=== PATIENT | female | born 1990 | race Caucasian/White ===

== ENCOUNTER 2017-06-24 07:42 | Inpatient (IN) | payer OTHER ==
[2017-06-24] MEDS ORDERED: Sodium Chloride 0.9% 10 ML Syringe FLUSH PRN (09:24)
--- NOTE | 2017-06-24 10:02 | PCM.LDHP ---
L&D History of Present Illness - General Date of Service: 06/24/17 Admit Problem/Dx: Patient Status Order with Admit Dx/Problem 06/24/17 09:25 Patient Status [ADT] Routine Admission Diagnosis/Problem Admission Diagnosis/Problem 06/24/17 09:40 38-5/7 week intrauterine , active labor Source of Information: Patient History Limitations: Reports: No Limitations - History of Present Illness Introduction:: Love is a 27-year-old 1 para 0 white female is admitted in active labor on 06/24/2017. She reports contractions since last evening with significant enough contractions to keep her from resting well. On her last evaluation in clinic cervix was dilated to 1 cm, 80% effaced, posterior position, soft consistency and -3 station. It is now advanced to 5 cm, 90% effaced, anterior, - 1 station, very soft, cephalic presentation. Contractions are moderate in strength and are occurring every 2-7 minutes. For approximately 1 minute. Membranes are intact. Baby is active per patient history. 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 Last menstrual period was 09/29/2016 last for approximately 5-7 days. She has regular cycles with frequency of diffuse 27 days. Menarche age 14. Positive hCG on 10/29/2016. She is not on any control time conception. Patient's course started with her first visit on 12/23/2016 at 12 weeks and 1 day. She was seen on a very regular basis throughout the . Weight gain was from 209 pounds initially to a final weight of 229.4 pounds for a 20.4 pound weight gain. Her vital signs are stable. . Fundal Height growth was appropriate. Patient plans to breast-feed. She declined genetic testing. She has a history of depression but did well during the . She desires a natural delivery. Ultrasound done initially showed a somewhat eccentric. This did not seem to cause any Concerns and Growth Has Been Appropriate. She Had an Elevated 1 Hour Glucose Tolerance Test but a Normal Three-Hour Glucose Tolerance Test. Her Inverted Depression Screening on 03/06/2017 Was 11. She Is Doing Well with Depression Symptoms. Her Group B Strep Screen Was Negative. She Is Rubella Nonimmune and Therefore Is a Candidate for an MMR after Delivery. Laboratory Testing Blood B Positive. Antibody Screen Is Negative. Hepatitis Screen Is Negative. First Almost 12.1 G/DL. Platelets Were 359,000. Rubella Titer Showed Nonimmunity. Patient Is a Candidate for MMR after Delivery. RPR Was Nonreactive. Urine Culture Was Unremarkable. Hepatitis B Surface Antigen and HIV Assays Were Both Negative. Chlamydia and Gonorrhea Assays Were Both Negative. One-Hour GTT Was 132. Second Trimester Labs Showed Hemoglobin of 11.5 G or Deciliter and Platelet Count Which Was Normal at 329, 000. Her 3 hour glucose tolerance test showed a fasting blood sugar of 82, 1 hour 133, 2 hour 132, 3 hour 74. The strep screen is negative. Allergies: Pseudoephedrine which causes itching, rash and swelling Medications: 1. Ferrous sulfate 325 m oral tablets daily 2 tablets one daily Past medical history: 1. Eczema Past surgical history: 1. Tonsillectomy 2000 Family history: Mother alive with Lyme's disease. Dad with an AR 1 stent placed. One brother with Lyme's disease. One brother alive and well. 6 sisters some with depression and celiac disease. Maternal grandmother , cause unknown. Paternal grandfather , cause unknown. Paternal grandmother , cause unknown. Paternal grandfather secondary to an AR. Patient reports no bleeding, clotting, anesthesia or problems in the family. Social history: Patient is is Tito, she does not use any significant muscle alcohol, drugs or tobacco. [place] Review of systems: In general patient is doing well. She is experiencing contractions. Baby has been active. No complaints. Skin negative HEENT negative Lungs-no shortness of breath or infectious symptoms Cardiovascular no chest pain or exercise intolerance Breasts-changes associated with , patient plans to breast-feed GI-negative -increased fundal height and body habitus changes secondary to , increased frequency of urination Musculoskeletal-minimal swelling lower extremities Neurological-negative Physical exam: In general patient is well-developed, well-nourished, pleasant female who appears in moderate distress secondary to contractions. She reports good activity. Skin is warm and dry without lesions HEENT, neck and back within normal limits Lungs are clear with good breath sounds in all lung earl. Cardiovascular exam shows regular and rhythm without murmurs. Breast exam deferred Hemond on the first visit and found to be normal. Abdomen is protuberant with last fundal height clinic at 38 cm, baby in a vertex presentation Cervix is 5 cm, 90% effaced, -1 station, anterior, very soft, bag morataya intact , cephalic presentation Extremities are without significant edema Neurological exam within normal limits. Assessment: 1. 38-6/7 week intrauterine , active labor 2. Group B strep negative 3. Rubella nonimmune-candidate for MMR 4. Patient plans to breast-feed 5. Patient desires natural labor Plan: 1. Anticipate normal spontaneous vaginal delivery. Proceed with natural labor per patient desire 2. Support breast-feeding 3. MMR postdelivery 4. CBC - Related Data Allergies/Adverse Reactions: Allergies Allergy/AdvReac Type Severity Reaction Status Date / Time pseudoephedrine Allergy Itching Verified 06/24/17 09:23 H&P Review of Systems - Review of Systems: Review Of Systems: See Below L&D Exam - Exam Exam: See Below - Vital Signs Weight: 103.873 kg Problem List Initiated/Reviewed/Updated: Yes Orders Last 24hrs: Active Orders 24 hr Category Date Time Status Patient Status [ADT] Routine ADT 06/24/17 09:25 Active Activity as Tolerated [RC] PFP Care 06/24/17 09:25 Active Communication Order [RC] ASDIRECTED Care 06/24/17 09:25 Active Heart Tones [RC] ASDIRECTED Care 06/24/17 09:34 Active Notify Provider [RC] PFP Care 06/24/17 09:25 Active Notify Provider [RC] PRN Care 06/24/17 09:25 Active Peripheral IV Care [RC] . DIRECTED Care 06/24/17 09:34 Active Vital Signs [RC] PER UNIT ROUTINE Care 06/24/17 09:25 Active Regular Diet [DIET] Diet 06/24/17 Breakfast Active CBC WITH AUTO DIFF [HEME] Stat Lab 06/24/17 09:24 Ordered Lactated Ringers [Ringers, Lactated] 1,000 ml Med 06/24/17 09:30 Ordered IV ASDIRECTED Sodium Chloride 0.9% [Saline Flush] Med 06/24/17 09:24 Ordered 10 ml FLUSH ASDIRECTED PRN Electronic Heart Tones Ext w TOCO [WOMSER] Oth 06/24/17 09:25 Ordered Routine Electronic Heart Tones Internal [WOMSER] Per Unit Oth 06/24/17 09:25 Ordered Routine Peripheral IV Insertion Adult [OM.PC] Routine Oth 06/24/17 09:25 Ordered Resuscitation Status Routine Resus Stat 06/24/17 09:24 Ordered Medication Orders Lactated Ringer's (Ringers, Lactated) 1,000 mls @ 100 mls/hr IV ASDIRECTED LAWANDA Sodium Chloride (Saline Flush) 10 ml FLUSH ASDIRECTED PRN PRN Reason: Keep Vein Open
[2017-06-24] MEDS ORDERED: ePHEDrine 50 MG/ML SDV IVPUSH PRN (10:36)
[2017-06-24] MEDS ORDERED: diphenhydrAMINE 50 MG/ML SDV IVPUSH PRN (10:36)
[2017-06-24] MEDS ORDERED: fentaNYL 100 MCG/2 ML SDV EPIDUR PRN (10:36)
[2017-06-24] MEDS ORDERED: Bupivacaine/fentaNYL/NS 100 ML Bag EPIDUR SCH (10:45)
--- NOTE | 2017-06-24 13:09 | PCM.SN ---
- Free Text/Narrative Note: Love is a 27 y/o G1 now P1001 white female who was admitted on the AM of in active labor. She is 38 2/7 weeks with an CELIA of 07/06/17. Her cx changed from [facility] clinic last visit to 3-4 cm upon initial evaluation here in the hospital. She is monitored and over the course of the next hours she changed to 5 cm. There is bulging bag of morataya. Patient progressed steadily through labor. At 8 cm she had artificial rupture membranes with resultant lightly meconium-stained amniotic fluid. heart tones were reassuring throughout the entire labor pattern. At approximately 2000 hrs. patient was found to be completely dilated. She pushed and at 2021 hrs. delivered a viable, epstein, male in the left occiput anterior position, weight was 3100 g (6 lbs. 13 oz.), length was 20 inches and Apgars were 8 and 9. The umbilical cord was around neck 2-loose and was reduced over the baby's head. The baby's cord was clamped 2 and cut by the father of the baby. He was then taken to the warmer and evaluated by Dr. Dawkins , claim approver, because of the meconium-stained amniotic fluid. The placenta delivered intact in a Blair presentation. It had a marginal cord insertion it appeared intact and complete. It was discarded per patient desire. Estimated blood loss was 100 mL. There were no significant perineal lacerations or labial lacerations. Her were abrasions on the medial aspect of both labia minora at about the 10:00 and 2:00 positions. These were not bleeding was no anatomic distortion. Uterus is found to be firm and just below the umbilicus. Epidural was used for labor and analgesia. The placenta had a three-vessel cord. Condition: Good. Patient plans to breast-feed.
[2017-06-24] MEDS: Lactated Ringers 1,000 ML IV SCH ×2 (15:31→16:19)
[2017-06-24] MEDS ORDERED: Phenylephrine/Normal Saline 100 MCG/ML 10 ML Syringe IVPUSH PRN (16:42)
--- NOTE | 2017-06-24 16:42 | PCM.PREANE ---
Preanesthetic Assessment - Anesthesia/Transfusion/Family Hx Anesthesia History: Prior Anesthesia Without Reaction Family History of Anesthesia Reaction: No Transfusion History: No Prior Transfusion(s) - Review of Systems General: No Symptoms Pulmonary: No Symptoms Cardiovascular: No Symptoms Gastrointestinal: No Symptoms Neurological: No Symptoms Other: Reports: None - Physical Assessment Pulse: 105 O2 Sat by Pulse Oximetry: 99 Respiratory Rate: 19 Blood Pressure: 132/78 Temperature: 37.1 C Vital Signs: Last Vital Signs Temp 37.1 C 06/24/17 07:56 Pulse 105 H 06/24/17 07:56 Resp 19 06/24/17 07:56 BP 132/78 06/24/17 07:56 Pulse Ox 99 06/24/17 07:56 Height: 1.68 m Weight: 103.873 kg ASA Class: 2 Mental Status: Alert & Oriented x3 Airway Class: Mallampati = 1 Dentition: Reports: Normal Dentition Thyro-Mental Finger Breadths: 3 Mouth Opening Finger Breadths: 3 ROM/Head Extension: Full Lungs: Clear to Auscultation, Normal Respiratory Effort Cardiovascular: Regular Rate, Regular Rhythm, No Murmurs - Lab Values: Laboratory Last Values WBC 14.61 K/mm3 (3.98-10.04) H 06/24/17 09:30 RBC 4.74 M/mm3 (3.98-5.22) 06/24/17 09:30 Hgb 12.3 gm/L (11.2-15.7) 06/24/17 09:30 Hct 36.8 % (34.1-44.9) 06/24/17 09:30 MCV 77.6 fl (79.4-94.8) L 06/24/17 09:30 MCH 25.9 pg (25.6-32.2) 06/24/17 09:30 MCHC 33.4 g/dl (32.2-35.5) 06/24/17 09:30 RDW Std Deviation 39.5 fL (36.4-46.3) 06/24/17 09:30 Plt Count 261 K/mm3 (182-369) 06/24/17 09:30 MPV 10.7 fl (9.4-12.3) 06/24/17 09:30 Neut % (Auto) 83.7 % (34.0-71.1) H 06/24/17 09:30 Lymph % (Auto) 11.2 % (19.3-51.7) L 06/24/17 09:30 Spink % (Auto) 4.2 % (4.7-12.5) L 06/24/17 09:30 Eos % (Auto) 0.4 (0.7-5.8) L 06/24/17 09:30 Baso % (Auto) 0.1 % (0.1-1.2) 06/24/17 09:30 Neut # (Auto) 12.23 K/mm3 (1.56-6.13) H 06/24/17 09:30 Lymph # (Auto) 1.63 K/mm3 (1.18-3.74) 06/24/17 09:30 Spink # (Auto) 0.61 K/mm3 (0.24-0.36) H 06/24/17 09:30 Eos # (Auto) 0.06 K/mm3 (0.04-0.36) 06/24/17 09:30 Baso # (Auto) 0.02 K/mm3 (0.01-0.08) 06/24/17 09:30 - Allergies Allergies/Adverse Reactions: Allergies Allergy/AdvReac Type Severity Reaction Status Date / Time pseudoephedrine Allergy Itching Verified 06/24/17 09:23 - Anesthesia Plan Pre-Op Medication Ordered: None - Acknowledgements Anesthesia Type Planned: Epidural Pt an Appropriate Candidate for the Planned Anesthesia: Yes Alternatives and Risks of Anesthesia Discussed w Pt/Guardian: Yes Pt/Guardian Understands and Agrees with Anesthesia Plan: Yes PreAnesthesia Questionnaire Gastrointestinal History: Reports: GERD Psychiatric History: Reports: Depression - Past Surgical History HEENT Surgical History: Reports: Tonsillectomy - SUBSTANCE USE Smoking Status *Q: Never Smoker Second Hand Smoke Exposure: No Recreational Drug Use History: No - CURRENT (IN HOUSE) MEDS Current Meds: Current Medications Diphenhydramine HCl (Benadryl) 25 mg IVPUSH Q6H PRN PRN Reason: Itching Ephedrine Sulfate (Ephedrine Sulfate) 5 mg IVPUSH ASDIRECTED PRN PRN Reason: HYPOTENTSION Fentanyl (Sublimaze) 100 mcg EPIDUR Q3H PRN PRN Reason: PAIN Last Admin: 04/24/18 16:26 Dose: 100 mcg Fentanyl/Bupivacaine HCl (Fentanyl/Bupivacaine/Ns 2 Mcg-0.125% 100 Ml) 100 ml EPIDUR ASDIRECTED LAWANDA Last Admin: 06/24/17 16:26 Dose: 100 ml Lactated Ringer's (Ringers, Lactated) 1,000 mls @ 100 mls/hr IV ASDIRECTED LAWANDA Last Admin: 06/24/17 16:19 Dose: 100 mls/hr Sodium Chloride (Saline Flush) 10 ml FLUSH ASDIRECTED PRN PRN Reason: Keep Vein Open
[2017-06-24] MEDS ORDERED: Calcium Carbonate 500 MG Tab.Chew PO PRN (17:19)
[2017-06-24] MEDS ORDERED: Bupivacaine 0.25% 10 ML SDV ONE (18:00)
[2017-06-24] MEDS ORDERED: Acetaminophen 325 MG Tab PO PRN (21:00)
[2017-06-24] MEDS ORDERED: Docusate Sodium 100 MG Cap PO PRN (21:00)
[2017-06-24] MEDS ORDERED: Witch Hazel Medicated Pads 100/Jar TOP PRN (21:00)
[2017-06-24] MEDS ORDERED: Benzocaine/Menthol 20%-0.5% Spray 56 GM Canister TOP PRN (21:00)
[2017-06-24] MEDS ORDERED: Lanolin 100% Cream 7 GM Tube TOP PRN (21:00)
[2017-06-25] MEDS: Ibuprofen 600 MG Tab PO PRN ×3 (07:34→17:55)
--- NOTE | 2017-06-25 09:06 | PCM.SN ---
- Free Text/Narrative Note: note: Patient is doing well in the period. Minimal lochia, voiding well, ambulated without problems. Nursing without concerns. Patient is afebrile, vital signs are stable Abdomen is flat, soft, uterus is below the umbilicus and is firm and nontender. Legs are nontender. Assessment: recovery going well. Plan: Routine care. Patient be discharged home within the next 24- 48 hours.
--- NOTE | 2017-06-25 10:32 | PCM48HPAN ---
Post Anesthesia Note - EVALUATION WITHIN 48HRS OF ANESTHETIC Vital Signs in Normal Range: Yes Patient Participated in Evaluation: Yes Respiratory Function Stable: Yes Airway Patent: Yes Cardiovascular Function Stable: Yes Hydration Status Stable: Yes Pain Control Satisfactory: Yes Nausea and Vomiting Control Satisfactory: Yes Mental Status Recovered: Yes Pulse Rate: 105 Resp Rate: 19 Temperature: 37.0 C Blood Pressure: 132/78 - COMMENTS/OBSERVATIONS Free Text/Narrative:: Patient denied any anesthesia complications
[2017-06-26] MEDS: Ibuprofen 600 MG Tab PO PRN ×2 (01:31→09:05)
--- NOTE | 2017-06-26 05:37 | PCM.DCSUM1 ---
Discharge Summary - Hospital Course Free Text/Narrative:: erika is a 27 y/o G1 now P1001 white female who was admitted on the AM of in active labor. She is 38 2/7 weeks with an CELIA of 07/06/17. Her cx changed from [facility] last visit to 3-4 cm upon initial evaluation here in the hospital. She is monitored and over the course of the next hours she changed to 5 cm. There is bulging bag of morataya. Patient progressed steadily through labor. At 8 cm she had artificial rupture membranes with resultant lightly meconium-stained amniotic fluid. heart tones were reassuring throughout the entire labor pattern. At approximately 2000 hrs. patient was found to be completely dilated. She pushed and at 2021 hrs. delivered a viable, epstein, male infant in the left occiput anterior position, weight was 3100 g (6 lbs. 13 oz.), length was 20 inches and Apgars were 8 and 9. The umbilical cord was around neck 2-loose and was reduced over the baby's head. The baby's cord was clamped 2 and cut by the father of the baby. He was then taken to the warmer and evaluated by Dr. Dawkins , roofer gypsum, because of the meconium-stained amniotic fluid. The placenta delivered intact in a Blair presentation. It had a marginal cord insertion it appeared intact and complete. It was discarded per patient desire. Estimated blood loss was 100 mL. There were no significant perineal lacerations or labial lacerations. Her were abrasions on the medial aspect of both labia minora at about the 10:00 and 2:00 positions. These were not bleeding was no anatomic distortion. Uterus is found to be firm and just below the umbilicus. Epidural was used for labor and analgesia. The placenta had a three-vessel cord. Patient plans to breast-feed. patient is doing well. She is afebrile, vital signs stable and is having no complaints. She is nursing well, has minimal lochia and is voiding without concerns. Follow-up hemoglobin is decreased but manageable at this point. Patient will continue on her iron. She is interested in going home today. - Discharge Data Discharge Date: 06/26/17 Discharge Disposition: Home, Self-Care 01 Condition: Good - Patient Instructions Diet: Regular Diet as Tolerated (Nursing diet with increased calories and calcium as directed) Activity: As Tolerated (No intercourse or tampons until bleeding resolves) Driving: May Drive Today Showering/Bathing: May Shower Showering/Bathing, Other: May take a bath Notify Provider of: Fever, Increased Pain, Swelling and Redness, Nausea and/or Vomiting - Discharge Plan Prescriptions/Med Rec: PNV95/Ferrous Fumarate/FA [Prenavite Tablet] 1 each PO DAILY #100 tablet Home Medications: Home Meds Acetaminophen [Tylenol] 650 mg PO Q4H PRN tablet 06/26/17 [Rx] Ibuprofen [IJD: Ibuprofen] 600 mg PO Q4H PRN tablet 06/26/17 [Rx] PNV95/Ferrous Fumarate/FA [Prenavite Tablet] 1 each PO DAILY #100 tablet [Rx] Referrals: Onel Amador MD [Primary Care Provider] - - Discharge Summary/Plan Comment DC Time >30 min.: No Discharge Summary/Plan Comment: Discharge instructions: 1. Discharge home 2. Diet, activity and follow-up discussed with patient. Recommend nursing diet with increased calories and calcium. 3. Precautions given concern increased pain, bleeding, temperature, signs/ symptoms of DVT/PE. 4. Medications per home medication was printed, discussed with and given to the patient. 5. Return to clinic-Dr. Amador[facility] in 2 weeks. Diagnosis: Term -delivered Condition: Good - Patient Data Vitals - Most Recent: Last Vital Signs Temp 36.9 C 06/26/17 01:34 Pulse 65 06/26/17 01:34 Resp 16 06/26/17 01:34 BP 113/72 06/26/17 01:34 Pulse Ox 98 06/26/17 01:34 Weight - Most Recent: 103.873 kg I&O - Last 24 hours: Intake & Output 06/25/17 06/25/17 06/26/17 14:59 22:59 06:59 Intake Total 120 Balance 120 Lab Results - Last 24 hrs: Laboratory Results - last 24 hr 06/25/17 Range/Units 06:20 WBC 15.69 H (3.98-10.04) K/mm3 RBC 4.28 (3.98-5.22) M/mm3 Hgb 11.0 L (11.2-15.7) gm/L Hct 33.7 L (34.1-44.9) % MCV 78.7 L (79.4-94.8) fl MCH 25.7 (25.6-32.2) pg MCHC 32.6 (32.2-35.5) g/dl RDW Std Deviation 39.5 (36.4-46.3) fL Plt Count 247 (182-369) K/mm3 MPV 10.2 (9.4-12.3) fl Med Orders - Current: Current Medications Acetaminophen (Tylenol) 650 mg PO Q4H PRN PRN Reason: mild pain or fever Benzocaine/Menthol (Dermoplast Pain Relief [place]) 0 gm TOP ASDIRECTED PRN PRN Reason: Perineal Comfort Measure Docusate Sodium (Colace) 100 mg PO BID PRN PRN Reason: Constipation Emollient Ointment (Lansinoh Hpa) 0 gm TOP ASDIRECTED PRN PRN Reason: Sore Nipples Last Admin: 06/25/17 13:15 Dose: 1 applic Ibuprofen (Motrin) 600 mg PO Q4H PRN PRN Reason: Mild pain or fever Last Admin: 06/26/17 01:31 Dose: 600 mg Witch Liz (Tucks) 1 pad TOP ASDIRECTED PRN PRN Reason: Hemorrhoid pain Discontinued Medications Calcium Carbonate/Glycine (Tums) 500 mg PO Q2HR PRN PRN Reason: Indigestion Last Admin: 06/24/17 17:47 Dose: 500 mg Diphenhydramine HCl (Benadryl) 25 mg IVPUSH Q6H PRN PRN Reason: Itching Ephedrine Sulfate (Ephedrine Sulfate) 5 mg IVPUSH ASDIRECTED PRN PRN Reason: HYPOTENTSION Fentanyl (Sublimaze) 100 mcg EPIDUR Q3H PRN PRN Reason: PAIN Last Admin: 06/24/17 16:26 Dose: 100 mcg Fentanyl/Bupivacaine HCl (Fentanyl/Bupivacaine/Ns 2 Mcg-0.125% 100 Ml) 100 ml EPIDUR ASDIRECTED [facility] Last Admin: 06/24/17 16:26 Dose: 100 ml Lactated Ringer's (Ringers, Lactated) 1,000 mls @ 100 mls/hr IV ASDIRECTED [facility] Last Admin: 04/24/18 16:19 Dose: 100 mls/hr Oxytocin 20 unit/ Lactated (Ringer's) 1,002 mls @ 1,503 mls/hr IV TITRATE LAWANDA; Protocol Phenylephrine HCl (Phenylephrine In Ns 100 Mcg/Ml) 100 mg IVPUSH ONETIME PRN PRN Reason: Hypotension Sodium Chloride (Saline Flush) 10 ml FLUSH ASDIRECTED PRN PRN Reason: Keep Vein Open
== END 2017-06-26 10:52 | disposition home or self-care (01) | DRG 775 ==
LOC: JD.OBCHECK 07:42 → JD.OB 07:43 → JD.OBCHECK 09:24 → JD.OB 09:25 → OBSVTOIN 20:22 → JD.OB 20:51
PROVIDERS: ADMIT Obstetrics & Gynecology; ATTEND Obstetrics & Gynecology
PROC: 10E0XZZ Delivery of Products of Conception, External Approach (ICD-10-PCS; principal; 2017-06-24)
PROC: 10907ZC Drainage of Amniotic Fluid, Therapeutic from Products of Conception, Via Natural or Artificial Opening (ICD-10-PCS; 2017-06-24)
PROC: 00HU33Z Insertion of Infusion Device into Spinal Canal, Percutaneous Approach (ICD-10-PCS; 2017-06-24)
PROC: 3E0R3BZ Introduction of Anesthetic Agent into Spinal Canal, Percutaneous Approach (ICD-10-PCS; 2017-06-24)
DX: O77.0 Labor and delivery complicated by meconium in amniotic fluid (principal); O69.81X0 Labor and delivery complicated by cord around neck, without compression, not applicable or unspecified; O69.89X0 Labor and delivery complicated by other cord complications, not applicable or unspecified; Z3A.38 38 weeks gestation of pregnancy; Z37.0 Single live birth; Z28.3 Underimmunization status
CPT/HCPCS: 36415; 51702; 59025; 59409; 85025; 85027; A9270-GY; J3010; J7120

== ENCOUNTER 2021-04-01 13:22 | Inpatient (IN) | payer OTHER ==
[2021-04-01] MEDS ORDERED: Lidocaine 1% 50 ML MDV INJECT ONE (14:38)
[2021-04-01] MEDS ORDERED: Nalbuphine 10 MG/1 ML Vial IVPUSH PRN (14:38)
[2021-04-01] MEDS ORDERED: Lactated Ringers 1,000 ML IV SCH (14:45)
[2021-04-01] MEDS ORDERED: Oxytocin/Lactated Ringers 10 UNIT/1,000 ML BAG IV SCH (14:45)
[2021-04-01] MEDS ORDERED: Ampicillin 2 GM in Sodium Chloride 0.9% 100 ML IV ONE (15:00)
[2021-04-01] MEDS ORDERED: Ampicillin 1 GM in Sodium Chloride 0.9% 100 ML IV SCH (19:00)
[2021-04-01] MEDS ORDERED: Sodium Chloride 0.9% 10 ML Syringe FLUSH SCH (21:00)
[2021-04-01] MEDS ORDERED: Witch Hazel Medicated Pads 40/Jar TOP PRN (21:23)
[2021-04-01] MEDS ORDERED: Benzocaine/Menthol 20%-0.5% Spray 78 GM Cannister TOP PRN (21:23)
[2021-04-01] MEDS: Ibuprofen 600 MG Tab PO PRN (22:00)
[2021-04-02] MEDS: Ibuprofen 600 MG Tab PO PRN ×2 (04:19→20:14)
== END 2021-04-03 13:45 | disposition home or self-care (01) | DRG 807 ==
LOC: JD.OBCHECK 13:22 → JD.OB 13:23 → JD.OBCHECK 16:16 → OBSVTOIN 20:41 → JD.OB 20:42
PROVIDERS: ADMIT Obstetrics & Gynecology; ATTEND Obstetrics & Gynecology
PROC: 10E0XZZ Delivery of Products of Conception, External Approach (ICD-10-PCS; principal; 2021-04-01)
DX: O99.824 Streptococcus B carrier state complicating childbirth (principal); Z37.0 Single live birth; O99.62 Diseases of the digestive system complicating childbirth; K21.9 Gastro-esophageal reflux disease without esophagitis; Z20.822 Contact with and (suspected) exposure to COVID-19; Z3A.39 39 weeks gestation of pregnancy; Z86.16 Personal history of COVID-19
CPT/HCPCS: 36415; 59025; 59409; 85027; 86592; 86803; A9270-GY; J0290; J2590; J7120; U0002

== ENCOUNTER 2023-04-07 10:33 | Emergency (ER) | payer BC, OTHER ==
[2023-04-07 11:57] LABS: CORONAVIRUS COVID-19 NAA NEGATIVE (NEGATIVE); INFLUENZA A NAA NEGATIVE (NEGATIVE); RESPIRATORY SYNCYTIAL VIR NAA NEGATIVE (NEGATIVE)
[2023-04-07 13:37] LABS: BASOPHILS ABSOLUTE AUTO 0.1 K/mm3 (0.0-0.2); BASOPHILS PERCENT AUTO 0.6 % (0.0-1.0); EOSINOPHILS ABSOLUTE AUTO 0.2 K/mm3 (0.0-0.4); HEMOGLOBIN 13.2 gm/dl (12.0-16.0); IMMATURE GRAN ABSOLUTE AUTO 0.08 K/mm3 (0.00-0.05); IMMATURE GRAN PERCENT AUTO 0.5 % (0.0-0.4); LYMPHOCYTES ABSOLUTE AUTO 2.9 K/mm3 (1.0-4.8); LYMPHOCYTES PERCENT AUTO 19.1 % (24.0-44.0); MEAN CORPUSCULAR HEMOGLOBIN 25.7 pg (28.0-32.0); MEAN CORPUSCULAR HGB CONC 32.2 g/dl (32.0-36.0); MEAN CORPUSCULAR VOLUME 79.8 fl (83.0-99.0); MEAN PLATELET VOLUME 9.5 fl (9.4-12.3); MONOCYTES ABSOLUTE AUTO 0.9 K/mm3 (0.0-0.8); MONOCYTES PERCENT AUTO 5.6 % (0.0-8.0); NEUTROPHILS ABSOLUTE AUTO 11.3 K/mm3 (1.8-7.7); NEUTROPHILS PERCENT AUTO 73.2 % (41.0-71.0); PLATELET COUNT,PLT 429 K/mm3 (150-400); RED BLOOD CELL COUNT 5.14 M/mm3 (4.10-5.30); WHITE BLOOD CELL COUNT,WBC 15.43 K/mm3 (3.9-11.3)
[2023-04-07] MEDS: Sodium Chloride 0.9% 10 ML Syringe FLUSH PRN (13:46)
[2023-04-07] MEDS: Sodium Chloride 0.9% 1,000 ML IV SCH (13:46)
[2023-04-07 14:09] LABS: A/G RATIO 1.3 (1-2); ALANINE AMINOTRANSFERASE,ALT 27 U/L (14-59); ALBUMIN 4.1 g/dl (3.4-5.0); ALKALINE PHOSPHATASE 64 U/L (46-116); ASPARTATE AMNIOTRANSFERASE,AST 13 U/L (15-37); BILIRUBIN TOTAL 0.5 mg/dL (0.2-1.0); BLOOD UREA NITROGEN,BUN 6 mg/dL (7-18); C-REACTIVE PROTEIN 0.5 mg/dL (<1.0); CALCIUM 8.8 mg/dL (8.5-10.1); CARBON DIOXIDE,CO2 28 mEq/L (21-32); CHLORIDE,CL 103 mEq/L (98-107); CREATININE 0.6 mg/dL (0.55-1.02); ESTIMATED GFR 123 mL/min (>60); GLUCOSE RANDOM 93 mg/dL (70-99); PROTEIN TOTAL,TP 7.2 g/dl (6.4-8.2); SODIUM,NA 140 mEq/L (136-145); TROPONIN I HIGH SENSITIVITY 5 pg/mL (<=51); TSH 1.524 uIU/mL (0.358-3.74)
[2023-04-07] MEDS: Labetalol 100 MG/20 ML MDV IVPUSH ONE (17:49)
== END 2023-04-07 16:15 | disposition home or self-care (01) ==
LOC: JD.ED 10:33
DX: T50.905A Adverse effect of unspecified drugs, medicaments and biological substances, initial encounter (principal); I47.11 Inappropriate sinus tachycardia, so stated; Z88.8 Allergy status to other drugs, medicaments and biological substances
CPT/HCPCS: 0241U; 36415; 71046; 80053; 83735; 84443; 84484; 85025; 85379; 86140; 93005; 96360; 99285; J3490; J7030; 93010; 99284

== ENCOUNTER 2024-07-15 12:42 | Emergency (ER) | payer BC ==
[2024-07-15 14:18] LABS: BASOPHILS ABSOLUTE AUTO 0.1 K/mm3 (0.0-0.2); BASOPHILS PERCENT AUTO 0.9 % (0.0-1.0); EOSINOPHILS ABSOLUTE AUTO 0.2 K/mm3 (0.0-0.4); EOSINOPHILS PERCENT AUTO 2.5 % (0.0-6.0); HEMATOCRIT 37.9 % (37.0-47.0); IMMATURE GRAN ABSOLUTE AUTO 0.02 K/mm3 (0.00-0.05); IMMATURE GRAN PERCENT AUTO 0.2 % (0.0-0.4); LYMPHOCYTES ABSOLUTE AUTO 2.1 K/mm3 (1.0-4.8); LYMPHOCYTES PERCENT AUTO 25.8 % (24.0-44.0); MEAN CORPUSCULAR HEMOGLOBIN 25.9 pg (28.0-32.0); MEAN CORPUSCULAR HGB CONC 31.7 g/dl (32.0-36.0); MEAN CORPUSCULAR VOLUME 81.7 fl (83.0-99.0); MEAN PLATELET VOLUME 10.4 fl (9.4-12.3); MONOCYTES ABSOLUTE AUTO 0.4 K/mm3 (0.0-0.8); MONOCYTES PERCENT AUTO 5.1 % (0.0-8.0); NEUTROPHILS ABSOLUTE AUTO 5.3 K/mm3 (1.8-7.7); NEUTROPHILS PERCENT AUTO 65.5 % (41.0-71.0); PLATELET COUNT,PLT 384 K/mm3 (150-400); RED BLOOD CELL COUNT 4.64 M/mm3 (4.10-5.30); WHITE BLOOD CELL COUNT,WBC 8.11 K/mm3 (3.9-11.3)
[2024-07-15 14:51] LABS: A/G RATIO 1.3 (1-2); ALANINE AMINOTRANSFERASE,ALT 24 U/L (14-59); ALBUMIN 3.8 g/dl (3.4-5.0); ALKALINE PHOSPHATASE 53 U/L (46-116); ANION GAP 15.4 (5-15); ASPARTATE AMNIOTRANSFERASE,AST 14 U/L (15-37); BILIRUBIN TOTAL 0.4 mg/dL (0.2-1.0); BLOOD UREA NITROGEN,BUN 6 mg/dL (7-18); CALCIUM 8.6 mg/dL (8.5-10.1); CARBON DIOXIDE,CO2 27 mEq/L (21-32); CHLORIDE,CL 105 mEq/L (98-107); CREATININE 0.6 mg/dL (0.55-1.02); EST CRCL DRUG DOSING (CG) 121.13 mL/min; ESTIMATED GFR 122 mL/min (>60); GLUCOSE RANDOM 90 mg/dL (70-99); POTASSIUM,K 4.4 mEq/L (3.5-5.1); PROTEIN TOTAL,TP 6.7 g/dl (6.4-8.2); SODIUM,NA 143 mEq/L (136-145); TSH 1.107 uIU/mL (0.358-3.74)
[2024-07-15 14:52] LABS: TROPONIN I HIGH SENSITIVITY < 4 pg/mL (<=51)
== END 2024-07-15 15:25 | disposition home or self-care (01) ==
LOC: JD.ED 12:42
DX: R00.2 Palpitations (principal); Z86.16 Personal history of COVID-19
CPT/HCPCS: 36415; 71046; 71046-26; 80053; 83735; 84443; 84484; 85025; 85379; 93005; 93010; 93246; 99283; 99285

== ENCOUNTER 2024-07-21 00:13 | Emergency (ER) | payer BC ==
[2024-07-21] MEDS ORDERED: Sodium Chloride 0.9% 10 ML Syringe FLUSH PRN (00:30)
[2024-07-21 00:50] LABS: BASOPHILS ABSOLUTE AUTO 0.1 K/mm3 (0.0-0.2); BASOPHILS PERCENT AUTO 0.6 % (0.0-1.0); EOSINOPHILS ABSOLUTE AUTO 0.3 K/mm3 (0.0-0.4); EOSINOPHILS PERCENT AUTO 2.8 % (0.0-6.0); HEMATOCRIT 39.1 % (37.0-47.0); HEMOGLOBIN 12.6 gm/dl (12.0-16.0); IMMATURE GRAN ABSOLUTE AUTO 0.05 K/mm3 (0.00-0.05); IMMATURE GRAN PERCENT AUTO 0.4 % (0.0-0.4); LYMPHOCYTES ABSOLUTE AUTO 3.4 K/mm3 (1.0-4.8); LYMPHOCYTES PERCENT AUTO 27.2 % (24.0-44.0); MEAN CORPUSCULAR HEMOGLOBIN 26.1 pg (28.0-32.0); MEAN CORPUSCULAR HGB CONC 32.2 g/dl (32.0-36.0); MEAN CORPUSCULAR VOLUME 81.1 fl (83.0-99.0); MEAN PLATELET VOLUME 9.9 fl (9.4-12.3); MONOCYTES ABSOLUTE AUTO 0.8 K/mm3 (0.0-0.8); MONOCYTES PERCENT AUTO 6.2 % (0.0-8.0); NEUTROPHILS ABSOLUTE AUTO 7.8 K/mm3 (1.8-7.7); NEUTROPHILS PERCENT AUTO 62.8 % (41.0-71.0); PLATELET COUNT,PLT 354 K/mm3 (150-400); RED BLOOD CELL COUNT 4.82 M/mm3 (4.10-5.30); WHITE BLOOD CELL COUNT,WBC 12.34 K/mm3 (3.9-11.3)
[2024-07-21 01:24] LABS: A/G RATIO 1.3 (1-2); ALBUMIN 3.9 g/dl (3.4-5.0); ANION GAP 15.3 (5-15); BILIRUBIN TOTAL 0.2 mg/dL (0.2-1.0); BUN/CREATININE RATIO 11.3 (14-18); CALCIUM 8.7 mg/dL (8.5-10.1); CREATININE 0.8 mg/dL (0.55-1.02); EST CRCL DRUG DOSING (CG) 90.84 mL/min; MAGNESIUM 1.7 mg/dL (1.8-2.4); POTASSIUM,K 3.3 mEq/L (3.5-5.1); TSH 3.012 uIU/mL (0.358-3.74)
[2024-07-21] MEDS: Sodium Chloride 0.9% 1,000 ML IV ONE (01:41)
[2024-07-21] MEDS: LORazepam 1 MG Tab PO ONE (01:41)
[2024-07-21 02:18] LABS: APPEARANCE,URINE CLEAR (Clear); BILIRUBIN,URINE NEGATIVE (Negative); COLOR,URINE YELLOW (Yellow); GLUCOSE,URINE NEGATIVE (Negative); KETONES,URINE NEGATIVE (Negative); LEUKOCYTE ESTERASE,URINE TRACE (Negative); NITRITE,URINE NEGATIVE (Negative); OCCULT BLOOD,URINE NEGATIVE (Negative); PROTEIN,URINE NEGATIVE (Negative); UROBILINOGEN,URINE 0.2 (0.2-1.0)
[2024-07-21 02:26] LABS: BACTERIA,URINE FEW /hpf (FEW); EPITHELIAL CELLS,URINE 0-5 /hpf (0-5); MUCUS,URINE FEW /hpf (FEW); RBC,URINE 0-5 /hpf (0-5)
[2024-07-21] MEDS: Potassium Chloride 20 MEQ Tab.ER PO ONE (04:29)
[2024-07-21] MEDS: Magnesium Oxide 400 MG Tab PO ONE (04:29)
[2024-07-21] MEDS: Cephalexin 500 MG Cap PO ONE (04:42)
== END 2024-07-21 06:16 | disposition home or self-care (01) ==
LOC: JD.ED 00:13
DX: R00.2 Palpitations (principal); R00.0 Tachycardia, unspecified; R07.89 Other chest pain; R82.90 Unspecified abnormal findings in urine; K21.9 Gastro-esophageal reflux disease without esophagitis; Z86.16 Personal history of COVID-19; Z79.899 Other long term (current) drug therapy; Z88.8 Allergy status to other drugs, medicaments and biological substances
CPT/HCPCS: 36415; 71045; 80053; 81001; 83690; 83735; 83880; 84443; 84484; 84703; 85025; 85379; 87040; 87086; 93005; 96360; 99285; A9270; J7030

== ENCOUNTER 2024-07-26 18:16 | Emergency (ER) | payer BC ==
[2024-07-26 19:17] LABS: BASOPHILS ABSOLUTE AUTO 0.1 K/mm3 (0.0-0.2); BASOPHILS PERCENT AUTO 0.9 % (0.0-1.0); EOSINOPHILS ABSOLUTE AUTO 0.3 K/mm3 (0.0-0.4); EOSINOPHILS PERCENT AUTO 2.5 % (0.0-6.0); HEMATOCRIT 41.7 % (37.0-47.0); HEMOGLOBIN 13.6 gm/dl (12.0-16.0); IMMATURE GRAN ABSOLUTE AUTO 0.04 K/mm3 (0.00-0.05); IMMATURE GRAN PERCENT AUTO 0.4 % (0.0-0.4); LYMPHOCYTES ABSOLUTE AUTO 2.8 K/mm3 (1.0-4.8); LYMPHOCYTES PERCENT AUTO 25.1 % (24.0-44.0); MEAN CORPUSCULAR HEMOGLOBIN 26.4 pg (28.0-32.0); MEAN CORPUSCULAR HGB CONC 32.6 g/dl (32.0-36.0); MEAN CORPUSCULAR VOLUME 80.8 fl (83.0-99.0); MEAN PLATELET VOLUME 10.3 fl (9.4-12.3); MONOCYTES ABSOLUTE AUTO 0.6 K/mm3 (0.0-0.8); MONOCYTES PERCENT AUTO 5.7 % (0.0-8.0); NEUTROPHILS ABSOLUTE AUTO 7.3 K/mm3 (1.8-7.7); NEUTROPHILS PERCENT AUTO 65.4 % (41.0-71.0); PLATELET COUNT,PLT 368 K/mm3 (150-400); RED BLOOD CELL COUNT 5.16 M/mm3 (4.10-5.30); WHITE BLOOD CELL COUNT,WBC 11.15 K/mm3 (3.9-11.3)
[2024-07-26 19:44] LABS: A/G RATIO 1.3 (1-2); ALBUMIN 4.1 g/dl (3.4-5.0); ANION GAP 12.8 (5-15); BILIRUBIN TOTAL 0.3 mg/dL (0.2-1.0); BUN/CREATININE RATIO 16.3 (14-18); CALCIUM 8.8 mg/dL (8.5-10.1); CREATININE 0.8 mg/dL (0.55-1.02); EST CRCL DRUG DOSING (CG) 90.84 mL/min; POTASSIUM,K 3.8 mEq/L (3.5-5.1); PROTEIN TOTAL,TP 7.3 g/dl (6.4-8.2)
[2024-07-26] MEDS ORDERED: Sodium Chloride 0.9% 100 ML IV SCH (21:00)
[2024-07-26] MEDS: Iopamidol 755 Mg/ML 100 ML Bottle IVPUSH ONE (21:36)
== END 2024-07-26 22:45 | disposition home or self-care (01) ==
LOC: JD.ED 18:16
DX: R07.9 Chest pain, unspecified (principal); R00.2 Palpitations; K21.9 Gastro-esophageal reflux disease without esophagitis; Z86.16 Personal history of COVID-19; Z79.899 Other long term (current) drug therapy; Z88.8 Allergy status to other drugs, medicaments and biological substances
CPT/HCPCS: 36415; 71275; 80053; 83735; 84484; 84703; 85025; 93005; 99285; Q9967

== ENCOUNTER 2024-08-08 22:57 | Emergency (ER) | payer BC ==
[2024-08-08] MEDS: Sodium Chloride 0.9% 10 ML Syringe FLUSH PRN (23:57)
[2024-08-08] MEDS: Diltiazem 25 MG/5 ML SDV IVPUSH ONE (23:57)
[2024-08-08 23:59] LABS: BASOPHILS ABSOLUTE AUTO 0.1 K/mm3 (0.0-0.2); EOSINOPHILS ABSOLUTE AUTO 0.3 K/mm3 (0.0-0.4); HEMATOCRIT 35.7 % (37.0-47.0); HEMOGLOBIN 11.7 gm/dl (12.0-16.0); IMMATURE GRAN ABSOLUTE AUTO 0.01 K/mm3 (0.00-0.05); IMMATURE GRAN PERCENT AUTO 0.1 % (0.0-0.4); LYMPHOCYTES ABSOLUTE AUTO 2.5 K/mm3 (1.0-4.8); LYMPHOCYTES PERCENT AUTO 29.8 % (24.0-44.0); MEAN CORPUSCULAR HEMOGLOBIN 26.4 pg (28.0-32.0); MEAN CORPUSCULAR HGB CONC 32.8 g/dl (32.0-36.0); MEAN CORPUSCULAR VOLUME 80.4 fl (83.0-99.0); MEAN PLATELET VOLUME 10.5 fl (9.4-12.3); MONOCYTES ABSOLUTE AUTO 0.6 K/mm3 (0.0-0.8); NEUTROPHILS ABSOLUTE AUTO 4.8 K/mm3 (1.8-7.7); NEUTROPHILS PERCENT AUTO 58.1 % (41.0-71.0); PLATELET COUNT,PLT 309 K/mm3 (150-400); RED BLOOD CELL COUNT 4.44 M/mm3 (4.10-5.30); WHITE BLOOD CELL COUNT,WBC 8.31 K/mm3 (3.9-11.3)
[2024-08-09 00:30] LABS: A/G RATIO 1.3 (1-2); ALANINE AMINOTRANSFERASE,ALT 30 U/L (14-59); ALBUMIN 3.5 g/dl (3.4-5.0); ALKALINE PHOSPHATASE 47 U/L (46-116); ANION GAP 11.9 (5-15); ASPARTATE AMNIOTRANSFERASE,AST 15 U/L (15-37); BILIRUBIN TOTAL 0.2 mg/dL (0.2-1.0); BLOOD UREA NITROGEN,BUN 9 mg/dL (7-18); BUN/CREATININE RATIO 12.9 (14-18); CALCIUM 8.5 mg/dL (8.5-10.1); CARBON DIOXIDE,CO2 27 mEq/L (21-32); CHLORIDE,CL 107 mEq/L (98-107); CREATININE 0.7 mg/dL (0.55-1.02); EST CRCL DRUG DOSING (CG) 103.82 mL/min; ESTIMATED GFR 118 mL/min (>60); GLUCOSE RANDOM 105 mg/dL (70-99); MAGNESIUM 1.7 mg/dL (1.8-2.4); POTASSIUM,K 3.9 mEq/L (3.5-5.1); PROTEIN TOTAL,TP 6.3 g/dl (6.4-8.2); SODIUM,NA 142 mEq/L (136-145)
[2024-08-09 00:33] LABS: TROPONIN I HIGH SENSITIVITY < 4 pg/mL (<=51); TSH 2.52 uIU/mL (0.358-3.74)
== END 2024-08-09 01:18 | disposition home or self-care (01) ==
LOC: JD.ED 22:57
DX: R00.2 Palpitations (principal); R07.9 Chest pain, unspecified; Z88.8 Allergy status to other drugs, medicaments and biological substances; Z79.899 Other long term (current) drug therapy; Z86.16 Personal history of COVID-19
CPT/HCPCS: 36415; 71045; 80053; 83735; 84443; 84484; 85025; 93005; 96374; 99285; J3490; 93010; 99283

== ENCOUNTER 2024-08-30 14:51 | Emergency (ER) | payer BC ==
[2024-08-30] MEDS ORDERED: Sodium Chloride 0.9% 10 ML Syringe FLUSH PRN (15:16)
[2024-08-30 15:46] LABS: BASOPHILS ABSOLUTE AUTO 0.1 K/mm3 (0.0-0.2); EOSINOPHILS ABSOLUTE AUTO 0.2 K/mm3 (0.0-0.4); EOSINOPHILS PERCENT AUTO 2.3 % (0.0-6.0); HEMATOCRIT 38.7 % (37.0-47.0); HEMOGLOBIN 12.6 gm/dl (12.0-16.0); IMMATURE GRAN ABSOLUTE AUTO 0.03 K/mm3 (0.00-0.05); IMMATURE GRAN PERCENT AUTO 0.4 % (0.0-0.4); LYMPHOCYTES ABSOLUTE AUTO 1.9 K/mm3 (1.0-4.8); MEAN CORPUSCULAR HEMOGLOBIN 26.3 pg (28.0-32.0); MEAN CORPUSCULAR HGB CONC 32.6 g/dl (32.0-36.0); MEAN CORPUSCULAR VOLUME 80.6 fl (83.0-99.0); MEAN PLATELET VOLUME 10.8 fl (9.4-12.3); MONOCYTES ABSOLUTE AUTO 0.4 K/mm3 (0.0-0.8); MONOCYTES PERCENT AUTO 5.3 % (0.0-8.0); NEUTROPHILS ABSOLUTE AUTO 5.3 K/mm3 (1.8-7.7); PLATELET COUNT,PLT 350 K/mm3 (150-400); WHITE BLOOD CELL COUNT,WBC 7.92 K/mm3 (3.9-11.3)
[2024-08-30] MEDS: Sodium Chloride 0.9% 1,000 ML IV ONE (15:48)
[2024-08-30 16:16] LABS: A/G RATIO 1.3 (1-2); ANION GAP 14.6 (5-15); BILIRUBIN TOTAL 0.4 mg/dL (0.2-1.0); BUN/CREATININE RATIO 11.4 (14-18); CALCIUM 8.7 mg/dL (8.5-10.1); CREATININE 0.7 mg/dL (0.55-1.02); EST CRCL DRUG DOSING (CG) 103.82 mL/min; MAGNESIUM 2.1 mg/dL (1.8-2.4); POTASSIUM,K 3.6 mEq/L (3.5-5.1); PROTEIN TOTAL,TP 7.1 g/dl (6.4-8.2)
[2024-08-30] MEDS: Ketorolac 30 MG/ML SDV IVPUSH ONE (18:02)
== END 2024-08-30 20:48 | disposition home or self-care (01) ==
LOC: JD.ED 14:51
DX: R51.9 Headache, unspecified (principal); K21.9 Gastro-esophageal reflux disease without esophagitis; Z86.16 Personal history of COVID-19; Z79.899 Other long term (current) drug therapy; Z88.8 Allergy status to other drugs, medicaments and biological substances
CPT/HCPCS: 36415; 70450; 80053; 83735; 84703; 85025; 96361; 96374; 99284; J1885; J7030

== ENCOUNTER 2025-01-08 23:44 | Emergency (ER) | payer BC ==
[2025-01-09 00:21] LABS: APPEARANCE,URINE CLEAR (Clear); GLUCOSE,URINE NEGATIVE (Negative); OCCULT BLOOD,URINE NEGATIVE (Negative)
[2025-01-09] MEDS: Ketorolac 60 MG/2 ML SDV IVPUSH STA (00:36)
[2025-01-09 00:37] LABS: BASOPHILS ABSOLUTE AUTO 0.1 K/mm3 (0.0-0.2); BASOPHILS PERCENT AUTO 0.7 % (0.0-1.0); EOSINOPHILS ABSOLUTE AUTO 0.2 K/mm3 (0.0-0.4); EOSINOPHILS PERCENT AUTO 1.9 % (0.0-6.0); IMMATURE GRAN ABSOLUTE AUTO 0.07 K/mm3 (0.00-0.05); IMMATURE GRAN PERCENT AUTO 0.6 % (0.0-0.4); LYMPHOCYTES ABSOLUTE AUTO 1.5 K/mm3 (1.0-4.8); LYMPHOCYTES PERCENT AUTO 11.7 % (24.0-44.0); MEAN PLATELET VOLUME 10.1 fl (9.4-12.3); MONOCYTES ABSOLUTE AUTO 1.0 K/mm3 (0.0-0.8); MONOCYTES PERCENT AUTO 8.3 % (0.0-8.0); NEUTROPHILS ABSOLUTE AUTO 9.5 K/mm3 (1.8-7.7); NEUTROPHILS PERCENT AUTO 76.8 % (41.0-71.0); NRBC ABSOLUTE 0.00 (0.00-0.02); NRBC PERCENT 0.0 % (0.0-0.2); PLATELET COUNT,PLT 341 K/mm3 (150-400); RED BLOOD CELL COUNT 4.80 M/mm3 (4.10-5.30); WHITE BLOOD CELL COUNT,WBC 12.38 K/mm3 (3.9-11.3)
[2025-01-09 00:38] LABS: BUPRENORPHINE SCREEN,URINE NEGATIVE (CUTOFF=10); METHADONE SCREEN, URINE NEGATIVE (CUTOFF=200); METHAMPHETAMINES SCREEN, URINE NEGATIVE (CUTOFF=500); OXYCODONE SCREEN,URINE NEGATIVE (CUT0FF=100); THC SCREEN,URINE 20 NG/ML NEGATIVE (CUTOFF=50)
[2025-01-09 00:39] LABS: AMPHETAMINES SCREEN, URINE NEGATIVE (CUTOFF=500)
[2025-01-09 00:59] LABS: A/G RATIO 1.1 (1-2); ALANINE AMINOTRANSFERASE,ALT 34.0 U/L (14-59); ASPARTATE AMNIOTRANSFERASE,AST 28.0 U/L (15-37); BILIRUBIN TOTAL 0.8 mg/dL (0.2-1.0); BLOOD UREA NITROGEN,BUN 9.0 mg/dL (7-18); CARBON DIOXIDE,CO2 27.0 mEq/L (21-32); CHLORIDE,CL 105.0 mEq/L (98-107); CREATINE KINASE,CK 16.0 U/L (26-192); CREATININE 0.7 mg/dL (0.55-1.02); EST CRCL DRUG DOSING (CG) 103.82 mL/min; ESTIMATED GFR 118.0 mL/min (>60); GLUCOSE RANDOM 104.0 mg/dL (70-99); POTASSIUM,K 3.9 mEq/L (3.5-5.1); PROTEIN TOTAL,TP 6.4 g/dl (6.4-8.2); SODIUM,NA 140.0 mEq/L (136-145)
== END 2025-01-09 01:30 | disposition home or self-care (01) ==
LOC: JD.ED 23:44
DX: R10.A1 Flank pain, right side (principal); K21.9 Gastro-esophageal reflux disease without esophagitis; Z88.8 Allergy status to other drugs, medicaments and biological substances; Z79.85 Long-term (current) use of injectable non-insulin antidiabetic drugs; Z79.899 Other long term (current) drug therapy; Z86.16 Personal history of COVID-19
CPT/HCPCS: 36415; 74176; 80053; 80306; 81003; 82550; 83690; 83735; 85025; 96361; 96374; 99284; A9270; J1885; J7030; 99283